=== PATIENT | female | born 1965 | race Caucasian/White ===

== ENCOUNTER 2017-11-23 10:08 | Emergency (ER) | payer SELFPAY, OTHER ==
[2017-11-23 10:58] LABS: ADD MAN DIFF? NO
[2017-11-23 11:00] LABS: WHITE BLOOD COUNT 9.5 10^3/ul (4.8-10.8)
[2017-11-23 11:00] LABS: BASOPHIL # 0.1 10^3/ul (0.0-0.1); BASOPHILS % 0.5 % (0.0-2.0); EOSINOPHILS # 0.1 10^3/ul (0.0-0.5); EOSINOPHILS % 0.8 % (0.0-7.0); HEMATOCRIT 41.5 % (37.0-47.0); HEMOGLOBIN 13.9 g/dl (12.0-16.0); LYMPHOCYTES # 1.6 10^3/ul (0.8-2.9); MEAN CORPUSCULAR HEMOGLOBIN 29.6 pg (29.0-33.0); MEAN CORPUSCULAR HGB CONC 33.5 g/dl (32.0-37.0); MEAN CORPUSCULAR VOLUME 88.5 fl (82.0-101.0); MEAN PLATELET VOLUME 9.5 fl (7.4-10.4); MONOCYTE # 0.6 10^3/ul (0.3-0.9); MONOCYTES % 6.6 % (0.0-11.0); NEUTROPHIL # 7.1 10^3/ul (1.6-7.5); NEUTROPHILS % 74.8 % (39.0-77.0); PLATELET COUNT 322 10^3/UL (140-415); RED BLOOD COUNT 4.69 10^6/ul (4.20-5.40); RED CELL DISTRIBUTION WIDTH 11.9 % (11.5-14.5)
[2017-11-23] MEDS: FAMOTIDINE 20 MG INJ IV (11:00)
[2017-11-23] MEDS: LIDOCAINE/MYLANTA 40 ML BTL PO (11:00)
[2017-11-23] MEDS: morphine 2 MG INJ IV (11:00)
[2017-11-23] MEDS: ONDANSETRON 4 MG INJ IV (11:00)
[2017-11-23] MEDS: SOD CHLORIDE 0.9% 1,000 ML IV (11:01)
[2017-11-23] MEDS: HYDROmorphONE 2 MG/ML SYG IV (11:25)
[2017-11-23 11:35] LABS: ALANINE AMINOTRANSFERASE 31 IU/L (13-69); ALBUMIN 4.7 g/dl (3.3-4.9); ALBUMIN/GLOBULIN RATIO 1.42; ALKALINE PHOSPHATASE 97 IU/L (42-121); ANION GAP 19 (8-16); ASPARTATE AMINO TRANSFERASE 38 IU/L (15-46); BILIRUBIN,INDIRECT 0.8 mg/dl (0-1.1); BILIRUBIN,TOTAL 0.8 mg/dl (0.2-1.3); BLOOD UREA NITROGEN 11 mg/dl (7-20); CALCIUM 9.7 mg/dl (8.4-10.2); CARBON DIOXIDE 24 mmol/L (21-31); CHLORIDE 108 mmol/L (97-110); CREATININE 0.74 mg/dl (0.44-1.00); GLUCOSE 108 mg/dl (70-220); LIPASE 237 U/L (23-300); POTASSIUM 3.5 mmol/L (3.5-5.1); SODIUM 147 mmol/L (135-144)
[2017-11-23] MEDS: SOD CHLORIDE 0.9% 100 ML (12:10)
[2017-11-23] MEDS: IOHEXOL 300MG/ML 150 ML BTL (12:10)
[2017-11-23 12:17] LABS: TROPONIN-I 0.011 ng/ml (0.000-0.120)
[2017-11-23 13:45] LABS: URINE BLOOD (Dip) POC Trace-lysed (NEGATIVE); URINE GLUCOSE (Dip) POC Negative (NEGATIVE); URINE KETONES (Dip) POC Negative (NEGATIVE); URINE LEUKOCYTE EST (Dip) POC Negative (NEGATIVE); URINE NITRITE (Dip) POC Negative (NEGATIVE); URINE TOTAL PROTEIN POC Negative (NEGATIVE)
[2017-11-23] MEDS: ONDANSETRON (ODT) 4 MG TAB ODT (16:19)
== END 2017-11-23 16:30 | disposition home or self-care (01) ==
LOC: FTE 10:08
DX: R33.9 Retention of urine, unspecified (principal); K52.9 Noninfective gastroenteritis and colitis, unspecified; R10.2 Pelvic and perineal pain
CPT/HCPCS: 36415; 74177; 76856; 80053; 81003; 81025; 83690; 84484; 85025; 96374; 96375; 99285-25

== ENCOUNTER 2018-10-09 16:50 | Emergency (ER) | payer MEDICAID ==
[2018-10-09] MEDS: LIDOCAINE 2% VISC 15 ML CUP PO (18:04)
== END 2018-10-09 19:03 | disposition home or self-care (01) ==
LOC: FTE 16:50
DX: H93.8X1 Other specified disorders of right ear (principal)
CPT/HCPCS: 99283; Z7610